=== PATIENT | male | born 1975 | race Caucasian/White ===

== ENCOUNTER 2022-06-18 15:05 | Outpatient (CLI) | payer BC, OTHER, SELFPAY ==
--- NOTE | 2022-06-18 15:30 | TELERAD_ITS ---
[address] [address] Phone:?[phone] Fax:?[phone] Referring Physician Information: Veto Wolfe M.D. [id number] [facility] [address] Phone:?[phone] Fax:?[phone] Patient:Vanessa Kumar D.O.B:?1975 Sex:?Male Phone:?[phone] [facility] MRN:?[id number] Exam Date:?06/18/2022 ? EXAM: MRI OF THE LEFT KNEE CLINICAL INFORMATION: The patient is a 47-year-old male with left knee pain. Evaluate for patellar tendon injury. PRIOR SURGERY: The patient has a history of prior knee surgery, including patellar tendon repair. COMPARISON STUDIES: Comparison is made to the prior MRI examination dated 04/11/2021. TECHNICAL INFORMATION: Imaging was performed on a high-field, 1.5 [employer] MR scanner. Axial proton-density and fat-suppressed T2 imaging of the left knee was performed in addition to sagittal proton-density and fat-suppressed proton- density imaging. Coronal proton-density and coronal STIR images were produced. FINDINGS: Articular/Extraarticular collections: Effusion: Mild. Popliteal cyst: Minimal. Loose bodies: No well-defined intra-articular loose bodies are present. Subcutaneous and extraarticular soft tissues: Subcutaneous soft tissue edema and/or hemorrhage can be seen along the anterior aspect of the patellar tendon and tibial tubercle, in keeping with the tendinosis and/or postsurgical changes discussed below. Osseous structures: There is evidence for prior surgical repair of the patellar tendon. Increased fat-suppressed signal intensity can be seen along the anterior and anterolateral aspects of the proximal tibia in the region of the repair site on axial series 4 image 28 and on coronal series 8 image 15. The findings can also be seen on sagittal series 6 image 23. The findings may relate to reactive edema, bony contusion, or stress change. No definite evidence for bony destruction nor well- defined fracture is seen. Additionally, reactive edema and/or postsurgical changes are seen involving the central and inferior aspects of the patella at the surgical anchor sites, noted to best advantage on coronal series 8 image 7. No well-defined patellar fracture is noted. No other bony abnormalities about the knee are seen. Ligamentous structures: ACL: Intact and normal in appearance. PCL: Intact and normal in appearance. MCL: Chronic residual changes of a prior incomplete MCL sprain can be seen on coronal series 7 image 18. No evidence for transverse disruption of MCL fibers can be seen. LCL: Intact and normal in appearance. Posterolateral corner: Intact and normal in appearance. Posteromedial corner: No posteromedial corner soft tissue injury. Semimembranosus and pes anserine tendons demonstrate no tendinopathy or associated bursitis. Extensor mechanism/Patellar retinacular structures: Patellar tendon: The patellar tendon is abnormal in appearance. There is evidence for prior surgical repair of the patellar tendon. Residual thickening and increased intrasubstance signal intensity can be seen. The findings are in keeping with postsurgical changes and/or recurrent tendinopathy. Surrounding soft tissue edema and/or hemorrhage is noted with areas of suspected reactive bony change involving the patella and proximal tibia. No definite evidence for transverse disruption of the patellar tendon fibers can be seen at this time. Quadriceps tendon: Intact, without tendinopathy. Retinacula: Postsurgical changes involving the medial and lateral retinacular structures can be seen. No evidence for acute injury is identified. No injuries to the medial patellofemoral ligament are seen. Medial compartment: Medial meniscus: No evidence for medial meniscal tearing can be seen. There is no evidence for parameniscal cyst formation. No meniscocapsular separation injury is identified. Medial femoral condyle: No chondromalacia, chondral defect, or osteochondral abnormality. Medial tibial plateau: No chondromalacia, chondral defect, or osteochondral abnormality. Lateral compartment: Lateral meniscus: No evidence for lateral meniscal tearing is present. No evidence for parameniscal cyst formation can be seen. Lateral femoral condyle: No chondromalacia, chondral defect, or osteochondral abnormality. Lateral tibial plateau: No chondromalacia, chondral defect, or osteochondral abnormality. Patellofemoral compartment: Patella: There are changes of grade II chondromalacia involving the medial and lateral patellar facets. No full-thickness patellar chondral defects are seen. Trochlea: Grade II chondromalacia can be seen along the articular surfaces of the femoral trochlea. No full-thickness trochlear defects are present. Neurovascular: No definite neurovascular abnormalities are seen. CONCLUSION: 1. Status post patellar tendon repair. There is thickening of the tendon with increased intrasubstance signal intensity and surrounding soft tissue edema and/or hemorrhage. The findings may relate to a recurrent tendinosis and/or postsurgical change. No evidence for transverse tearing of the patellar tendon fibers can be seen. Note is made of reactive or traumatic versus stress changes involving the inferior aspect of the patella and proximal tibia as described above. 2. Chronic incomplete MCL sprain. The ligamentous structures of the knee are otherwise intact. 3. No evidence for medial or lateral meniscal tearing is seen. 4. 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 No full- thickness chondral defects are seen. 5. Mild knee joint effusion and minimal popliteal cyst. [facility] Electronically signed on 06/19/2022 8:31:00 AM by Enzo Irwin M.D.
== END 2022-06-18 15:06 | disposition home or self-care (01) ==
LOC: MRI 15:06
PROVIDERS: PCP Physician Assistant Medical; Visit Provider Orthopaedic Surgery Sports Medicine
DX: Z98.890 Other specified postprocedural states (principal); M25.562 Pain in left knee; S83.412A Sprain of medial collateral ligament of left knee, initial encounter; M94.262 Chondromalacia, left knee; S86.812A Strain of other muscle(s) and tendon(s) at lower leg level, left leg, initial encounter; M25.462 Effusion, left knee
CPT/HCPCS: 73721

== ENCOUNTER 2022-08-01 16:00 | Outpatient (RCR) | payer BC, OTHER, SELFPAY | END 2023-06-19 23:59 | disposition home or self-care (01) | PROVIDERS: PCP Physician Assistant Medical; Visit Provider Orthopaedic Surgery Sports Medicine | DX: M76.52 Patellar tendinitis, left knee (principal); Z98.890 Other specified postprocedural states; M25.562 Pain in left knee; M25.662 Stiffness of left knee, not elsewhere classified; Z51.89 Encounter for other specified aftercare | CPT/HCPCS: 97110; 97161 ==